=== PATIENT | female | born 1955 | race Caucasian/White ===

== ENCOUNTER → 2022-10-14 | Outpatient (CLI) | payer SELFPAY ==
[2022-10-14 18:03] LABS: Absolute Neutrophil Count 3.9 X10^3/uL (2.0-7.7); Basophil# 0.04 X10^3/uL; Basophil% 0.7 % (0-1); Eosinophil# 0.09 X10^3/uL; Eosinophils% 1.6 % (0-5); Hematocrit 42.3 % (37-47); Hemoglobin 13.6 g/dL (12.0-15.0); Lymphocyte % 23.7 % (19-41); Mean Corp Hgb Conc 32.2 g/dL (32-36); Mean Corpuscular Hgb 30.7 pg (27.0-32.0); Mean Corpuscular Volume 95.5 fL (81-99); Mean Platelet Vol. 9.5 fl (6.2-12.0); Monocyte# 0.15 X10^3/uL; Monocyte% 2.7 % (0-10); NRBC Flagged by Analyzer 0 % (0-5); Neutrophil # 3.89 X10^3/uL (2.7-7.7); Neutrophil % 70.9 % (47-70); Platelet Count 307 K/mm3 (150-450); RBC Distribution Width CV 12.2 % (11.6-14.6); RBC Distribution Width SD 42.2 fl (35.1-43.9); Red Blood Count 4.43 M/mm3 (4.2-5.4); White Blood Count 5.5 K/mm3 (4.4-11.0)
[2022-10-14 18:09] LABS: Erythrocyte Sedimentation Rate 24 mm/hr (0-30)
[2022-10-14 18:31] LABS: AST(SGOT) 15 U/L (15-37); Alanine Aminotransfer ALT/SGPT 24 U/L (13-56); Albumin, Serum 4.2 g/dL (3.2-5.0); Alkaline Phosphatase 118 U/L (45-117); Bilirubin, Direct 0.11 mg/dL (0.00-0.30); Globulin 4.3 g/dL (2.2-4.2); Protein, Total 8.5 g/dL (6.4-8.2); Rheumatoid Factor < 10.0 IU/mL (<15)
[2022-10-16 12:09] LABS: Anti-Scleroderma-70 AB <0.2 AI (0.0-0.9); RNP Ab <0.2 AI (0.0-0.9); SJOGREN'S Anti-SS-A test < 0.2 AI (0.0-0.9); SJOGREN'S Anti-SS-B test < 0.2 AI (0.0-0.9)
[2022-10-17 08:30] LABS: ANTINUCLEAR ANTIBODIES DIRECT Negative (Negative); Anti-dsDNA Ab 1 IU/mL (0-9)
[2022-10-18 15:08] LABS: Angiotensin Convert Enzyme 61 U/L (14-82); Cytoplasmic Ab (C-ANCA) <1:20 titer (Neg:<1:20)
[2022-10-18 16:24] LABS: Anti-Smooth Muscle ABS 11 Units (0-19); CCP IgG Antibodies 0 units (0-19); Perinuclear Ab (P-ANCA) <1:20 titer (Neg:<1:20)
== END | disposition home or self-care (01) ==
PROVIDERS: PCP Family Medicine; Referring Provider Internal Medicine Pulmonary Disease; Visit Provider Internal Medicine Pulmonary Disease
DX: R91.1 Solitary pulmonary nodule (principal); R05.9 Cough, unspecified; R06.02 Shortness of breath
CPT/HCPCS: 36415; 80076; 82164; 83516; 85025; 85652; 86038; 86140; 86200; 86225; 86235; 86256; 86431

== ENCOUNTER → 2022-12-29 | Outpatient (CLI) | payer SELFPAY ==
[2022-12-29 12:03] LABS: AST(SGOT) 17 U/L (15-37); Alanine Aminotransfer ALT/SGPT 22 U/L (13-56); Albumin, Serum 3.8 g/dL (3.2-5.0); Alkaline Phosphatase 109 U/L (45-117); Bilirubin, Direct 0.16 mg/dL (0.00-0.30); Cholesterol 248 mg/dL (200); Globulin 3.8 g/dL (2.2-4.2); High Density Lipoprotein 100 mg/dL; Protein, Total 7.6 g/dL (6.4-8.2); Triglycerides 104 mg/dL; Very Low Density Lipoprotein 21 mg/dL (5-40)
== END | disposition home or self-care (01) ==
PROVIDERS: PCP Family Medicine; Referring Provider Internal Medicine Cardiovascular Disease; Visit Provider Internal Medicine Cardiovascular Disease
DX: R06.00 Dyspnea, unspecified (principal)
CPT/HCPCS: 36415; 80061; 80076

== ENCOUNTER → 2023-01-07 | Outpatient (CLI) | payer SELFPAY ==
--- NOTE | 2023-01-07 07:32 | ECHOD_ITS ---
Reason For Study: dyspnea Procedure This was a 2D Doppler, Color Flow transthoracic echocardiogram. Exam performed in department. Left Ventricle Normal LV size. Left ventricular systolic function is normal. The estimated ejection fraction is 55 %. Stage 1 diastolic dysfunction. No regional wall motion abnormalities noted. Right Ventricle Normal RV size. Normal systolic function. Atria Normal left atrium. Normal right atrium. Mitral Valve Normal mitral valve. Tricuspid Valve Normal tricuspid valve. Unable to estimate RV systolic pressure due to insufficient tricuspid regurgitant envelope. Aortic Valve Normal aortic valve. Pulmonic Valve Normal pulmonic valve. Great Vessels Normal aortic root. The pulmonary artery is normal size. Normal inferior vena cava. Pericardium/Pleural No pericardial effusion. MMode/2D Measurements & Calculations LVIDd: 4.9 cm IVSd: 0.88 cm Ao root diam: 3.1 cm LVIDs: 4.1 cm LVPWd: 0.92 cm RVDd: 2.5 cm FS: 17.2 % LAV(MOD-bp): 47.5 ml LVAd ap4: 28.4 cm2 SV(MOD-sp4): 51.6 ml LAV(MOD-bp) Indexed: 24.6 ml/m2 LVLd ap4: 7.3 cm LAV(MOD-sp2): 52.2 ml EDV(MOD-sp4): 93.8 ml LAV(MOD-sp4): 38.7 ml EDV(sp4-el): 93.3 ml LVAs ap4: 17.0 cm2 LVLs ap4: 6.0 cm ESV(MOD-sp4): 42.2 ml ESV(sp4-el): 40.7 ml EF(MOD-sp4): 55.0 % EF(sp4-el): 56.4 % SV(sp4-el): 52.6 ml LA A4 area: 14.3 cm2 LA dimension(2D): 3.8 cm RA A4 area: 14.9 cm2 Time Measurements MV dec time: 0.26 sec Doppler Measurements & Calculations MV E max juanpablo: 42.4 cm/sec Lat Peak E' Juanpablo: 7.6 cm/sec Med Peak E' Juanpablo: 6.6 cm/sec MV A max juanpablo: 74.3 cm/sec E/E' lat: 5.6 E/E' med: 6.5 MV E/A: 0.57 MV V2 max: 78.5 cm/sec Ao V2 max: 113.1 cm/sec MV max P.5 mmHg MV dec slope: 164.3 cm/sec2 Ao max P.1 mmHg MV V2 mean: 44.7 cm/sec Ao V2 mean: 79.3 cm/sec MV mean P.90 mmHg Ao mean P.8 mmHg MV V2 VTI: 29.0 cm Ao V2 VTI: 25.3 cm AV (velocity ratio): 0.90 LV V1 max: 101.2 cm/sec PA V2 max: 85.1 cm/sec LV V1 max P.1 mmHg PA V2 mean: 62.3 cm/sec LV V1 mean P.1 mmHg LV V1 mean: 67.8 cm/sec LV V1 VTI: 22.7 cm ECHO/Echo Complete Interpretation Summary Normal LV size. Left ventricular systolic function is normal. The estimated ejection fraction is 55 %. Stage 1 diastolic dysfunction. Ordering Physician: Pawan Beatty Referring Physician: Pawan Beatty Performed By: Bebe Balderas RCS
--- NOTE | 2023-01-07 15:26 | STRESSREP ---
Stress Test Report Exercise myocardial perfusion stress test. 67-year-old lady with dyspnea Stress protocol: Resting EKG demonstrates sinus bradycardia with a rate of 54 bpm resting blood pressure is 142/82 mmHg. The patient exercised according to the regular Alex protocol for a total duration of 6 minutes attaining a maximum heart rate of 129 bpm which was 83% of maximum predicted heart rate; the maximum workload was 7 metabolic equivalents. At rest there were no ST or T wave changes noted to suggest ischemia and at peak exercise upsloping ST changes only were noted which did not meet the criteria for ischemia. No clinical angina was noted the test was terminated due to the target heart rate being achieved/fatigue. The peak blood pressure was 188/80 mmHg. Rate-pressure product was 22,800. Myocardial perfusion protocol. 11.8 mCi of technetium 99m sestamibi was injected at rest. The patient exercised according to regular Alex protocol for total duration of 6 minutes and at peak exercise 34.3 mCi of technetium 99m sestamibi was injected stress images were obtained stress and rest images were reconstructed in comparing the short axis vertical long and horizontal long axis. Gated images were also obtained. Perfusion SPECT analysis: Review of the stress images demonstrate normal uptake of tracer noted in all areas of the myocardium. The resting images similarly demonstrate normal uptake of tracer noted in all areas of the myocardium. No areas of reversibility are noted to suggest ischemia no previous infarct was noted. Gated SPECT analysis: The gated ejection fraction is 64%. Conclusion: Normal exercise myocardial perfusion stress test at a moderate workload Preserved ejection fraction.
== END | disposition home or self-care (01) ==
LOC: CVS 07:28
PROVIDERS: PCP Family Medicine; Referring Provider Internal Medicine Cardiovascular Disease; Visit Provider Internal Medicine Cardiovascular Disease
DX: R06.02 Shortness of breath (principal)
CPT/HCPCS: 78452; 93017; 93306; A9500; A4216

== ENCOUNTER → 2023-03-31 | Outpatient (CLI) | payer SELFPAY ==
[2023-03-31 10:36] LABS: Anion Gap 4 (5-15); BUN 15 mg/dL (7-18); BUN/Creat Ratio 15.5 RATIO (10-20); Calcium,Total 10.5 mg/dL (8.5-10.1); Chloride 109 mmol/L (98-107); Creatinine, Serum 0.97 mg/dL (0.55-1.02); EST Glomerular Filtration Rate 61 mL/min (>60); Est Glom Filt Rate - Afr Amer 74 mL/min (>60); Glucose 89 mg/dL (74-106); Potassium 4.7 mmol/L (3.5-5.1); Sodium Level 142 mmol/L (136-145); Thyroid Stim Hormone (TSH) 2.68 uIU/mL (0.358-3.74)
== END | disposition home or self-care (01) ==
PROVIDERS: PCP Family Medicine; Referring Provider Nurse Practitioner Gerontology; Visit Provider Nurse Practitioner Gerontology
DX: R06.00 Dyspnea, unspecified (principal)
CPT/HCPCS: 36415; 80048; 83880; 84443

== ENCOUNTER → 2023-04-11 | Outpatient (CLI) | payer SELFPAY ==
[2023-04-11 13:22] LABS: CRP < 2.90 mg/L (0.0-3.0)
[2023-04-11 19:06] LABS: Erythrocyte Sedimentation Rate 10 mm/hr (0-30)
[2023-04-12 13:07] LABS: Angiotensin Convert Enzyme 55 U/L (14-82)
== END | disposition home or self-care (01) ==
LOC: LAB 11:30
PROVIDERS: PCP Family Medicine; Referring Provider Internal Medicine Pulmonary Disease; Visit Provider Internal Medicine Pulmonary Disease
DX: R05.3 Chronic cough (principal)
CPT/HCPCS: 36415; 82164; 85652; 86140

== ENCOUNTER → 2023-04-13 | Outpatient (CLI) | payer SELFPAY ==
--- NOTE | 2023-04-13 12:46 | CT_ITS ---
STUDY: CT CHEST WITHOUT CONTRAST REASON FOR EXAM: Female, 67 years old. BELLAMY. Cardiac over read examination. RADIATION DOSAGE (If Supplied By Facility): CTDIvol = ( 26.3 ) mGy, DLP = ( 1341.51 ) mGycm TECHNIQUE: Transaxial imaging was performed without the administration of intravenous contrast material. Individualized dose optimization techniques were used for this CT. COMPARISON: No relevant priors. FINDINGS: CHEST Mild degree of increased linear markings at the lung bases suggestive of scarring. There is no demonstrated pleural abnormality. There are calcifications of the coronary arteries. Normal mediastinum. Normal hilar regions. Normal unenhanced pulmonary arteries. There is atherosclerotic calcification of the aortic arch. There are multi-level degenerative changes of the thoracic spine. There is no demonstrated abnormality of the visualized upper abdomen. CT/Limited Chest CT Cardiac Only IMPRESSION: Coronary artery calcification. Electronically Signed: Berndan Jacobs MD at 15:21 EDT , No addendum needed. Please see prior report. Electronically Signed: Brendan Jacobs MD at 15:30 EDT ,
[2023-04-13 13:00] VITALS: BP 134/67; PULSE 56; RESP 18; TEMP 36.4; O2SAT 100; BMI 34.3
[2023-04-13] MEDS: 0.9% Saline Lock 10 ML Syringe IV (13:00)
[2023-04-13 13:20] VITALS: BP 120/80; PULSE 60
[2023-04-13] MEDS: Nitroglycerin SL (ED/IMG/CATH) 0.4 MG TABLET SL (13:20)
[2023-04-13 13:24] VITALS: BP 117/57; PULSE 58; RESP 18; O2SAT 95
--- NOTE | 2023-04-15 07:36 | CCTA.WCONT ---
CCTA w/Cont Coronary Arteries Date of Study:: 04/13/23 Dyspnea on exertion Coronary Calcium Scoring: High-resolution Computed Tomographic imaging of the chest was performed on [04/13/23 ], with particular attention paid to the coronary arteries. Intravenous contrast agent was administered per protocol and images reconstructed and displayed. LEFT MAIN CORONARY ARTERY: Arises from the left coronary cusp with no significant stenosis mild calcification is present [] LEFT ANTERIOR DESCENDING CORONARY ARTERY: Arises from the left main coronary artery with moderate calcification noted in the mid and distal segments. Misregistration artifact makes determination of coronary obstruction difficult but it appears unlikely to be high-grade. [] LEFT CIRCUMFLEX CORONARY ARTERY: No significant atherosclerotic plaquing noted [] RIGHT CORONARY ARTERY: Minimal atherosclerotic plaquing noted in the dominant vessel. [] CORONARY CALCIUM SCORE:LM 4 LAD 215 LCX 0 RCA 5 Total AGATSTON SCORE 224 Interpretation-Mild to moderate atherosclerotic plaquing noted especially in the left anterior descending artery territory likely nonobstructive. []
== END | disposition home or self-care (01) ==
PROVIDERS: PCP Family Medicine; Referring Provider Nurse Practitioner Gerontology; Visit Provider Nurse Practitioner Gerontology
DX: R06.09 Other forms of dyspnea (principal); I25.10 Atherosclerotic heart disease of native coronary artery without angina pectoris
CPT/HCPCS: 75571; 75574; 76380; Q9967